=== PATIENT | female | born 1990 | race Caucasian/White ===

== ENCOUNTER 2023-05-31 11:16 | Day surgery (SDC) | payer BC ==
[~2023-05-31 11:16] MED LIST: ACETAMINOPHEN TAB 500 MG TAB PO PRN; HEPARIN SODIUM,PORCINE/PF 5,000 UNIT/0.5 ML SYRINGE SQ PRN; Pre Op ABX Message 1 EACH MISC MISCELLANE ONE
[2023-05-31] MEDS ORDERED: HYDROmorphone 0.5 MG/0.5 ML SYRINGE IVP PRN (11:27)
[2023-05-31] MEDS ORDERED: DEXAMETHASONE SOD PHOSPHATE 4 MG/ML 1 ML VIAL IV ONE (11:27)
[2023-05-31] MEDS ORDERED: LACTATED RINGERS 1,000 ML IV SCH (11:27)
[2023-05-31] MEDS ORDERED: ONDANSETRON 4 MG/2 ML VIAL IVP ONE (11:27)
[2023-05-31 11:51] VITALS: RESP 16; TEMP 98
[2023-05-31] MEDS ORDERED: SUCCINYLCHOLINE CHLORIDE 200 MG/10 ML VIAL IV ONE (12:59)
[2023-05-31] MEDS ORDERED: KETOROLAC 15 MG/ML 1 ML VIAL ONE (12:59)
[2023-05-31] MEDS ORDERED: PROPOFOL 10 MG/ML 20 ML VIAL IV ONE (12:59)
[2023-05-31] MEDS ORDERED: MIDAZOLAM 2 MG/2 ML VIAL ONE (12:59)
[2023-05-31] MEDS ORDERED: LIDOCAINE 1% INJ 10MG/ML (20 ML MDV) ONE (12:59)
[2023-05-31] MEDS ORDERED: fentaNYL (PF) 50 MCG/ML 2 ML AMP ONE (12:59)
[2023-05-31] MEDS ORDERED: LIDOCAINE 0.5%-EPI 1:200,000 50 ML VIAL SQ ONE ×2 (13:26)
[2023-05-31] MEDS ORDERED: BACITRACIN ZINC 500 UNIT/GM OINT 28.4 GM TUBE TOPICAL ONE (13:31)
[2023-05-31] MEDS ORDERED: NALOXONE 0.4 MG/ML 1 ML VIAL IV PRN (14:02)
--- NOTE | 2023-05-31 14:11 | P.OP ---
Date of Procedure: 05/31/23 Procedure(s) Performed: PREOPERATIVE DIAGNOSIS: Perianal fistula POSTOPERATIVE DIAGNOSIS: Same PROCEDURE: Examination under anesthesia with fistulotomy SURGEON: Thao EBL: 2 mL ANESTHESIA: Gen. COMPLICATIONS: None OPERATIVE PROCEDURE: Patient place in the prone jackknife position after general anesthesia achieved. Buttocks were prepped and draped after taping the buttocks laterally. The small fistulous opening posterior midline was identified. A small metal probe was used to identify the internal os that was present on the outer aspect of the anal mucosa. This was all superficially subcutaneous and did not appear to traverse any of the anal sphincter. The skin overlying the fistula was excised including the fistula itself. This was sent to pathology. Electrocautery was used to take care of small areas of bleeding. The anal retractor was utilized and no additional abnormalities were noted. Bacitracin was applied to the wound site. Sterile outer gauze was applied. DISPOSITION: Stable to recovery room
[2023-05-31 15:03] VITALS: BP 121/78; PULSE 75
== END 2023-05-31 15:05 | disposition home or self-care (01) ==
LOC: OR 11:16
PROVIDERS: ATTEND Surgery
DX: K60.3 Anal fistula (principal); F41.9 Anxiety disorder, unspecified; Z90.49 Acquired absence of other specified parts of digestive tract; Z87.891 Personal history of nicotine dependence
CPT/HCPCS: 46270; 81025; J2250; J0330; J1100; J0690; J2405; J2001; J3010; J1885; J2704; J1644; 88304

== ENCOUNTER → 2024-10-08 | Outpatient (CLI) | payer BC ==
--- NOTE | 2024-10-08 07:33 | USB ---
Reason for Exam: Clinical finding. Technique: Method: Targeted. Findings: The area of palpable concern of the left breast, the axilla of the left breast and the retroareolar of the left breast were scanned. Electronically signed and approved by: Walter Meier M.D. [facility]
== END | disposition home or self-care (01) ==
LOC: RADUSWWP 07:09
PROVIDERS: ATTEND Family Medicine
DX: N63.20 Unspecified lump in the left breast, unspecified quadrant (principal)